=== PATIENT | male | born 1990 | race African-American/Black ===

== ENCOUNTER 2017-12-24 04:52 | Emergency (ER) | payer BC ==
[~2017-12-24] VITALS: Ht 167.6 cm; Wt 68.0 kg
[2017-12-24 05:40] LABS: URINE BILIRUBIN NEGATIVE (Negative); URINE BLOOD NEGATIVE (Negative); URINE CLARITY CLEAR; URINE COLOR YELLOW; URINE GLUCOSE-RANDOM* NEGATIVE (Negative); URINE KETONES NEGATIVE (Negative); URINE LEUKOCYTES-REFLEX NEGATIVE (Negative); URINE NITRITE-REFLEX NEGATIVE (Negative); URINE PROTEIN (DIPSTICK) NEGATIVE (Negative); URINE SPECIFIC GRAVITY 1.025 (1.005-1.035); URINE UROBILINOGEN 0.2 E.U./dl (0.2-1.0)
[2017-12-24] MEDS ORDERED: NORCO 5-325 TA1 EACH PO (07:00)
[2017-12-24] MEDS ORDERED: DOXYCYCLINE 10100 MG PO (07:00)
[2017-12-24 07:05] VITALS: BP 134/86
== END 2017-12-24 07:05 | disposition home or self-care (01) ==
LOC: ER 04:52
PROVIDERS: Emergency Medicine
DX: N45.1 Epididymitis (principal)